=== PATIENT | male | born 1955 | race African-American/Black ===

== ENCOUNTER 2017-02-05 11:05 | Emergency (ER) | payer OTHER ==
[~2017-02-05 11:05] MED LIST: AMANTADINE100 MG PO; ASPIRIN81 M1 PO; ATORVASTATIN CA40 MG PO; BACLOFEN10 MG PO; BACTRIM DS1 TAB PO; BENAZEPRIL HCL10 MG PO; CEFUROXIME AXE250 MG PO; COLACE100 MG PO; ESCITALOPRAM OX10 MG PO; NORVASC5 MG PO; PLAVIX75 MG PO; TAMSULOSIN HCL0.4 MG PO; TOPROL XL25 MG PO; VITAMIN D-31000 UNIT PO
--- NOTE | 2017-02-05 12:06 | DIAGNOSTIC IMAGING REPORT ---
PROCEDURE: XR CHEST 1 VIEW INDICATION: CHEST PAIN TECHNIQUE: Portable AP view 11:29 a.m. COMPARISON: 01/20/2016 and 09/09/2015 FINDINGS: Mild cardiomegaly with multi lead left-sided intact pacemaker. Post median sternotomy and CABG changes. No central vascular congestion. Stable, ectatic thoracic aorta. Mildly low lung volumes. Clear lungs. No obvious pleural effusion or pneumothorax. Intact osseous structures. IMPRESSION: 1. Stable chest. No acute process. 2. Mild cardiomegaly with pacemaker.
--- NOTE | 2017-02-05 16:24 | ED ORDER SUMMARY ---
..... Patient: CONCEPCION COYNE OrderSheet [facility] VisitID: [id number] [place] [address] 61y, M Registration Date/Time: 02/05/2017 ORDER SHEET Weight: 98.4 kg (stated) Allergies: No Known Drug Allergy GENERAL ORDERS: Chest 1V Urgent (11:02/05/2017 Rosey Mckinney) (Ack 11:14 YONATANoerner) (11:32 KHoerner) Cardiac Panel Stat (11:02/05/2017 Rosey Mckinney) (Ack 11:14 Susannaner) (11:27 Nisreen Bennett.N.) BNP Urgent (11:02/05/2017 Rosey Mckinney) (Ack 11:14 YONATANoerner) (11:33 KHoerner) D-Dimer Urgent (11:02/05/2017 Rosey Mckinney) (Ack 11:14 YONATANoerner) (11:33 KHoerner) UA-Culture if indicated Urgent (11:02/05/2017 Rosey Mckinney) (Ack 11:14 Sorayarner) (15:29 KHoerner) EKG - ER Stat (11:02/05/2017 Rosey Mckinney) (11:15 LNations ER Tech1) CPK (Draw at 1510 please) Urgent (14:14 02/05/2017 Rosey Mckinney) (Ack 14:17 YONATANoerner) (15:17 KHoerner) Troponin-I (Draw at 1510 please) Urgent (14:15 02/05/2017 Rosey Mckinney) (Ack 14:17 YONATANoerner) (15:17 KHoerner) MEDICATION ORDERS: IV FLUIDS: IV Saline Lock (11:02/05/2017 Rosey Mckinney) (11:34 Mayela R.NLizzy) IV NS : initial bolus none -, then 1000 mL/hr for X1 (NOW) (11:47 02/05/2017 Rosey Mckinney) (13:18 Nisreen Bennett.NLizzy) ORDER SHEET NOTES: [Electronically signed by Tenzin Gibbs R.N. (21:20 02/05/2017)] [Electronically signed by Kerwin Upton Dr. (20:37 02/06/2017)] [Electronically locked/signed by Tenzin Gibbs R.N. (:20 02/05/2017)]
--- NOTE | 2017-02-05 16:24 | ED CLINICAL REPORT ---
Clinical Report - Physicians/Mid Levels [facility] [address] [place] [address] 02/05/2017 11:08 Patient: CONCEPCION COYNE Time Seen: 11:12. Arrived- By ambulance. Historian- patient, EMS personnel and patient's physician. History limited by vague historian. HISTORY OF PRESENT ILLNESS Chief Complaint: CHEST PAIN. At its maximum, severity described as moderate. When seen in the E.D., severity described as moderate. Modifying factors. Not worsened by anything. Not relieved by anything. Not relieved by nitroglycerin. This started today and is still present. It is described as "pain" and it is described as located in the central chest area and radiating to the upper back. No nausea, vomiting or difficulty breathing. He has experienced diaphoresis. Similar symptoms previously: None. Recent medical care: Not recently seen/assessed. REVIEW OF SYSTEMS No fever, chills, cough, pedal edema or calf pain. No fainting episodes, abdominal pain or difficulty with urination. All systems otherwise negative, except as recorded above. PAST HISTORY Dehydration. Coronary Artery Disease. Fall. Heart Disease. Syncope. Near Syncope. Changed Mental Status. Head Injury. Laceration. Tetanus Status. Immunizations. Hypercholesterolemia. Hypertension. Urinary Incontinence. Benign Brain tumor. Seizure. Implanted Defibrillator. Cardiac Bypass. Dementia. CVA - Cerebrovascular Accident. --11:24 Tenzin Gibbs RLizzyN. Constipation [RuleOut]. Swallowed Foreign Body [RuleOut]. --11:24 Tenzin Gibbs R.N. ADDITIONAL SURGERIES: Cardiac Surgery. Coronary Artery Bypass Graft. Implantation of automatic cardioverter/defibrillator, total system (AICD). Pacemaker. SOCIAL HISTORY Never smoker. ADDITIONAL NOTES The nursing notes have been reviewed. PHYSICAL EXAM Vital Signs: 02/05/2017 11:09 BP: 113/76. HR: 83. RR: 16. O2 saturation: 95%. Temp: 97.7 F. Pain level now: 8/10. Have been reviewed as normal. Appearance: Alert. Patient in mild distress. Eyes: Eyes normal inspection. ENT: Dry mucous membranes present. Neck: Normal inspection. Neck supple. CVS: Normal heart rate and rhythm. Heart sounds normal. Respiratory: No respiratory distress. Breath sounds normal. Chest nontender. Abdomen: Soft and nontender. Bowel sounds normal. Back: Normal external inspection. Skin: Moderate diaphoresis. Extremities: No calf tenderness. No lower extremity edema. LABS, X-RAYS, AND EKG Chest X-ray: (1. Stable chest. No acute process. 2. Mild cardiomegaly with pacemaker.). Views: AP. Technique: good. The X-rays were independently viewed by me, interpreted by the radiologist and discussed with the radiologist. Laboratory Tests: CBC w Diff: (ERIC: 02/05/2017 11:20) ( MsgRcvd 02/05/2017 11:53) Final results Test Result Flag Units (Reference) WHITE BLOOD COUNT 7.2 K/uL (4.5-11.5) RED BLOOD COUNT 4.68 M/uL (4.50-5.90) HEMOGLOBIN 14.4 gm/dL (13.5-17.5) HEMATOCRIT 42.8 % (41.0-53.0) MEAN CELL VOLUME 92 fL (80-100) MEAN CORPUSCULAR HGB 31 pg (26-34) MEAN CORPUSCULAR HGB CONC 34 g/dL (31-37) RED CELL DISTRIBUTION WIDTH 14.2 % (11.6-14.8) PLATELET COUNT 217 K/uL (150-400) NEUTROPHIL % 47.9 L % (50-75) LYMPH % 39.2 % (25-40) MONO % 9.3 % (3-14) EOSINOPHIL % 3.1 % (0-4) BASOPHIL % 0.5 % (0-2) [id number]: (ERIC: 02/05/2017 11:20) ( MsgRcvd 02/05/2017 12:00) Final results Test Result Flag Units (Reference) D-DIMER QUANTITATIVE 0.40 ug/mLFEU (0.27-0.52) The primary value of this quantitative assay relates toits negative predictive value (i.e. exclusion) of pulmonaryembolism/deep vein thrombosis/DIC.Elevated levels of d-dimer may also occur with:, age, cancer, inflammation, liver disease,post-op, infection, hematoma, coronary disease, peripheralarteriopathy, bleeding disorders and thrombolytic treatment.Results should be correlated with other clinical andradiological data.Testing Methodology: Latex Immunoassay CPK: (ERIC: 02/05/2017 15:16) ( [facility] 02/05/2017 15:59) Final results Test Result Flag Units (Reference) CPK 79 U/L (24-260) TROPONIN I <0.05 L ng/mL (0.00-1.5) TROPONIN REFERENCE RANGE:<0.1 NEGATIVE0.1-1.5 INDETERMINANT>1.5 POSITIVE BNP: (ERIC: 02/05/2017 11:20) ( [facility] 02/05/2017 12:19) Final results Test Result Flag Units (Reference) B-TYPE NATRIURETIC PEPTIDE 21.4 pg/ml (5-100) CHEM 13 PANEL: (ERIC: 02/05/2017 11:20) ( [facility] 02/05/2017 12:17) Final results Test Result Flag Units (Reference) GLUCOSE 121 H mg/dL (70-110) BUN 22 H mg/dL (7-18) CREATININE 1.3 mg/dL (0.6-1.3) Estimated GFR 59.85 mL/min Estimated GFR- >60 mL/min Note: Persistent reduction over 3 months in eGFR<60 mL/min/1.73 m2 defines CKD. Patients with eGFR values>=60 mL/min/1.73 m2 may also have CKD if evidence ofpersistent proteinuria. Additional information may be foundat www.[email or web address].org. SODIUM 141 mmol/L (136-145) POTASSIUM 3.0 L mmol/L (3.5-5.1) CHLORIDE 104 mmol/L (98-107) CARBON DIOXIDE 25 mmol/L (21-32) CALCIUM 8.9 mg/dL (8.5-10.1) TOTAL PROTEIN 8.5 H g/dL (6.4-8.2) ALBUMIN 3.6 g/dL (3.3-5.0) BILIRUBIN, TOTAL 0.7 mg/dL (0.0-1.0) ALKALINE PHOSPHATASE 128 H U/L (46-116) AST (SGOT) 19 U/L (15-37) ALT (SGPT) 43 U/L (12-78) MAGNESIUM 2.1 mg/dL (1.8-2.4) CPK 83 U/L (24-260) TROPONIN I <0.05 ng/mL (0.00-1.5) TROPONIN REFERENCE RANGE:<0.1 NEGATIVE0.1-1.5 INDETERMINANT>1.5 POSITIVE . PROGRESS AND PROCEDURES Course of Care: 16:21 02/05/17. 2nd set of enzymes normal, will D/C back to rehab. Discussed case with patient's primary care provider, (call returned 14:08 Dr Penny. Will repeat cardiac enzymes at the 4 hour edmund, if normal, will send back to rehab.). Reviewed test results. Disposition: [facility]charged to jail in good and improved condition. Condition: good. CLINICAL IMPRESSION Atypical chest pain .12 lead EKG performed. INSTRUCTIONS Your Current Medications: CONTINUE TAKING THE FOLLOWING MEDICATIONS: Amantadine HCl Oral : Capsule 100 mg, 1 capsule daily. ASA Oral : 81 mg daily. Atorvastatin Calcium Oral : Tablet 40 mg, 1 tablet at bedtime. Baclofen Oral : Tablet 10 mg, 1/2 tablet 3x a day. Benazepril HCl Oral : Tablet 10 mg, 1 tablet BID. Escitalopram Oxalate Oral : Tablet 10 mg, 1 tablet daily. Plavix Oral : Tablet 75 mg, 1 tablet daily. Tamsulosin HCl Oral : Capsule 0.4 mg, 1 capsule daily. Toprol XL Oral : Tablet Extended Release 24 Hour 25 mg, 1 tablet daily. Vit D 3 2000 unit * : daily. Follow-up: Follow up with your doctor tomorrow. Blood pressure screening was not performed during this visit because the patient has an active diagnosis of hypertension. (Electronically signed by Kerwin Upton Dr. 02/06/2017 20:37)
--- NOTE | 2017-02-05 16:24 | ED NURSING NOTES ---
Clinical Report - Nurses [facility] [address] [place] [address] 02/05/2017 11:08 Patient: CONCEPCION COYNE TRIAGE Triage time 11:Feb 05 2017. Acuity: LEVEL 3. Chief Complaint: CHEST PAIN. Alert. MAREK COMA SCORE: Marek Coma Scale: 15- eyes open spontaneously (4); best verbal response- oriented x 4 (5); best motor response- obeys commands (6). --11:25 Tenzin Gibbs R.N. 11:09 02/05/17. BP: 113/76. HR: 83 (regular). RR: 16. O2 saturation: 95% on room air. Temp: 97.7 F (oral). Pain level now: 8/10. Additional comments: Back. --11:25 Tenzin Gibbs R.N. Weight: 98.4 kg stated. Height/Length: 71 inches Per Patient. BMI: 30.3. --11:15 Tenzin Gibbs R.N. Medications Amantadine HCl Oral (Capsule 100 mg) 1 capsule, daily. ASA Oral 81 mg, daily. Atorvastatin Calcium Oral (Tablet 40 mg) 1 tablet, at bedtime. Baclofen Oral (Tablet 10 mg) 1/2 tablet, 3x a day. Benazepril HCl Oral (Tablet 10 mg) 1 tablet, BID. Escitalopram Oxalate Oral (Tablet 10 mg) 1 tablet, daily. Plavix Oral (Tablet 75 mg) 1 tablet, daily. Tamsulosin HCl Oral (Capsule 0.4 mg) 1 capsule, daily. Toprol XL Oral (Tablet Extended Release 24 Hour 25 mg) 1 tablet, daily. Vit D 3 2000 unit , daily. --11:19 Tenzin Gibbs R.N. Allergies No Known Drug Allergy. --11:19 Tenzin Gibbs R.N. (Old med list, new facility med list). --11:25 Tenzin Gibbs R.N. History Arrived by private vehicle. Historian: patient. Unaccompanied. Primary physician (Zohaib). ( Back Pain (chronic), but recent Chest Pain.). This started today. 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 PAST MEDICAL HX: Immunizations: status is unknown. SOCIAL HX: Never smoker. No infectious disease exposure. ABUSE ASSESSMENT: No report of abuse. FALL RISK ASSESSMENT: Fall risk assessment completed. No fall risk identified. NUTRITIONAL RISK ASSESSMENT: The nutritional risk assessment revealed no deficiencies. FUNCTIONAL ASSESSMENT: Functional assessment: no impairments noted. LEARNING NEEDS ASSESSMENT: The learning needs assessment revealed no barriers. SKIN INTEGRITY ASSESSMENT: Skin integrity risk assessment completed. No skin integrity risk identified. --11:25 Tenzin Gibbs R.N. PROBLEMS: Dehydration. Coronary Artery Disease. Fall. Heart Disease. Syncope. Near Syncope. Changed Mental Status. Head Injury. Laceration. Tetanus Status. Immunizations. Hypercholesterolemia. Hypertension. Urinary Incontinence. Benign Brain tumor. Seizure. Implanted Defibrillator. Cardiac Bypass. Dementia. CVA - Cerebrovascular Accident. --11:24 Tenzin Gibbs R.N. Constipation [RuleOut]. Swallowed Foreign Body [RuleOut]. --11:24 Tenzin Gibbs R.N. ADDITIONAL SURGERIES: Cardiac Surgery. Coronary Artery Bypass Graft. Implantation of automatic cardioverter/defibrillator, total system (AICD). Pacemaker. --11:24 Tenzin Gibbs R.N. Interventions ID band on patient. To treatment room. --11:25 Tenzin Gibbs R.N. PHYSICAL ASSESSMENT To room via stretcher. GENERAL / NEURO / PSYCH: Alert. Oriented X 4. HEENT: Mucous membranes are pink. RESPIRATORY: Respirations not labored. CVS: Normal sinus rhythm noted. GI / : Abdomen soft. EXTREMITIES: No lower extremity edema. SKIN: Skin is warm and dry. Normal skin turgor. --11:26 Tenzin Gibbs R.N. NURSING PROGRESS NOTES 11:23 02/05/17. Finger stick glucose: 115 mg/dL; performed by nurse; result shown to the ED physician. --11:23 Tenzin Gibbs R.N. case monitor, pulse oximeter and NIBP monitor placed on patient; property assessment monitor- Lead II and V1; monitor alarms on. Patient gowned. Patient identifiers checked. Call light placed in reach. Side rails up x 2. Bed placed in lowest position. Brakes of bed on. Patient ready for evaluation- chart flagged and ED physician notified. --11:26 Tenzin Gibbs R.N. 11:29 02/05/2017 Site #1 started via IV in the right antecubital space with an 20g angiocath; two attempts. Blood drawn: rainbow set. Labeled in the presence of the patient and sent to the lab. Saline lock flushed with 10 mL saline. --11:34 Romario Gandhi R.N. EKG time: (1117). EKG was ordered, performed by a tech and shown to the ED physician. --11:35 Melanie Desir, ANAMARIA Tech1 12:15 02/05/17. BP: 90/52. HR: 67. RR: 16. O2 saturation: 99% on room air. --13:13 Tenzin Gibbs R.N. 13:00 02/05/17. BP: 114/72. HR: 74 (regular and normal rate). RR: 16. O2 saturation: 98% on room air. Pain level now: 03/02. Additional comments: BACK PAIN. --13:16 Tenzin Gibbs R.N. 11:30 02/05/2017 Started bag #1 1000 mL IV Fluids IV NS (Saline); at 1000 mL/hr over 60 minute(s) via site #1 via IV pump. Allergies verified. IV patency established. IV site checked: no pain, redness, or swelling. IV flushed thoroughly pre- and post-medication administration. --13:18 Tenzin Gibbs R.N. 12:30 02/05/2017 IV Fluids IV NS Bag Change: bag #1 infused. Total amount infused: 1000. STARTED bag #2 at 125 mL/hr via IV pump. Confirmed 5 rights. IV patency established. IV site checked: no pain, redness, or swelling. IV flushed thoroughly. --13:19 Tenzin Gibbs R.N. 13:36 02/05/17. Warming measures: blanket applied. He was turned and repositioned. ( patient rounding). --13:36 Kandy Zheng R.N. 13:36 02/05/17. BP: 105/65 (regular adult cuff) taken on the left arm, via an automated monitor, while lying. HR: 74 (regular). RR: 14. O2 saturation: 100% on nasal cannula at 2 liters/minute. --13:38 Kandy Zheng R.N. 13:41 02/05/17. BP: 122/82 (regular adult cuff) taken on the right arm, manually, while lying. HR: 71. RR: 14. O2 saturation: 98%. --13:42 Kandy Zheng R.N. 14:30 02/05/17. BP: 106/71. HR: 72. RR: 16. O2 saturation: 97% on nasal cannula at 2 liters/minute. --14:46 Tenzin Gibbs R.N. 16:07 02/05/17. BP: 127/76. HR: 78. RR: 16. O2 saturation: 98% on room air. --16:08 Tenzin Gibbs R.N. 18:10 02/05/2017 Site #1 removed upon discharge. Catheter intact. Manual pressure, pressure dressing and bandaid applied. --21:20 Tenzin Gibbs R.N. 18:10 02/05/2017 IV Fluids IV NS Discontinued: bag #2 discontinued upon discharge. Total amount infused: 600 mL. IV patency established. IV site checked: no pain, redness, or swelling. IV flushed thoroughly. --21:19 Tenzin Gibbs R.N. DISPOSITION / DISCHARGE Departure time: 1814. --21:07 Tenzin Gibbs R.N. <<STRICKEN ENTRY-- 21:08 02/05/17. BP: 128/77. HR: 78. RR: 16. O2 saturation: 97% on room air. Temp: 98.6 F. Pain level now: 11/02. Additional comments: Chronic Back Pain. --21:13 Tenzin Gibbs R.N. --END STRIKE>> Correction. --21:13 Tenzin Gibbs R.N. 18:02/05/17. BP: 128/77. HR: 78. RR: 16. O2 saturation: 97% on room air. Temp: 98.6 F (oral). Pain level now: 2/10. Additional comments: Chronic Back Pain. --21:15 Sai, Tenzin, R.N. 18:15. Condition at departure: improved. No learning barriers present. Discharge instructions provided and reviewed with the patient. Reviewed medication(s) (continue your usual prescribed medications). Reviewed referral to family practice for followup. Family verbalized understanding. Written instructions provided in Vietnamese. The patient was discharged by the physician. He was discharged home and accompanied by ambulance. He left the Emergency Department via ambulance and on a stretcher. Driving (Transport crew). --21:18 Tenzin Gibbs R.N. Locked/Released at 02/05/2017 21:20 by Tenzin Gibbs R.N.
--- NOTE | 2017-02-05 16:24 | ED ORDER SUMMARY ---
..... Patient: CONCEPCION COYNE OrderSheet [facility] VisitID: [id number] [place] [address] 61y, M Registration Date/Time: 02/05/2017 ORDER SHEET Weight: 98.4 kg (stated) Allergies: No Known Drug Allergy GENERAL ORDERS: Chest 1V Urgent (11:02/05/2017 Rosey Mckinney) (Ack 11:14 YONATANoerner) (11:32 KHoerner) Cardiac Panel Stat (11:02/05/2017 Rosey Mckinney) (Ack 11:14 Susannaner) (11:27 Nisreen Bennett.N.) BNP Urgent (11:02/05/2017 Rosey Mckinney) (Ack 11:14 YONATANoerner) (11:33 KHoerner) D-Dimer Urgent (11:02/05/2017 Rosey Mckinney) (Ack 11:14 YONATANoerner) (11:33 KHoerner) UA-Culture if indicated Urgent (11:02/05/2017 Rosey Mckinney) (Ack 11:14 Sorayarner) (15:29 KHoerner) EKG - ER Stat (11:02/05/2017 Rosey Mckinney) (11:15 LNations ER Tech1) CPK (Draw at 1510 please) Urgent (14:14 02/05/2017 Rosey Mckinney) (Ack 14:17 YONATANoerner) (15:17 KHoerner) Troponin-I (Draw at 1510 please) Urgent (14:15 02/05/2017 Rosey Mckinney) (Ack 14:17 YONATANoerner) (15:17 KHoerner) MEDICATION ORDERS: IV FLUIDS: IV Saline Lock (11:02/05/2017 Rosey Mckinney) (11:34 Mayela R.NLizzy) IV NS : initial bolus none -, then 1000 mL/hr for X1 (NOW) (11:47 02/05/2017 Rosey Mckinney) (13:18 Nisreen Bennett.NLizzy) ORDER SHEET NOTES: [Electronically signed by Tenzin Gibbs R.N. (21:20 02/05/2017)] [Electronically signed by Kerwin Upton Dr. (20:37 02/06/2017)] [Electronically locked/signed by Tenzin Gibbs R.N. (:20 02/05/2017)]
--- NOTE | 2017-02-05 16:24 | ED CLINICAL REPORT ---
Clinical Report - Physicians/Mid Levels [facility] [address] [place] [address] 02/05/2017 11:08 Patient: CONCEPCION COYNE Time Seen: 11:12. Arrived- By ambulance. Historian- patient, EMS personnel and patient's physician. History limited by vague historian. HISTORY OF PRESENT ILLNESS Chief Complaint: CHEST PAIN. At its maximum, severity described as moderate. When seen in the E.D., severity described as moderate. Modifying factors. Not worsened by anything. Not relieved by anything. Not relieved by nitroglycerin. This started today and is still present. It is described as "pain" and it is described as located in the central chest area and radiating to the upper back. No nausea, vomiting or difficulty breathing. He has experienced diaphoresis. Similar symptoms previously: None. Recent medical care: Not recently seen/assessed. REVIEW OF SYSTEMS No fever, chills, cough, pedal edema or calf pain. No fainting episodes, abdominal pain or difficulty with urination. All systems otherwise negative, except as recorded above. PAST HISTORY Dehydration. Coronary Artery Disease. Fall. Heart Disease. Syncope. Near Syncope. Changed Mental Status. Head Injury. Laceration. Tetanus Status. Immunizations. Hypercholesterolemia. Hypertension. Urinary Incontinence. Benign Brain tumor. Seizure. Implanted Defibrillator. Cardiac Bypass. Dementia. CVA - Cerebrovascular Accident. --11:24 Tenzin Gibbs RLizzyN. Constipation [RuleOut]. Swallowed Foreign Body [RuleOut]. --11:24 Tenzin Gibbs R.N. ADDITIONAL SURGERIES: Cardiac Surgery. Coronary Artery Bypass Graft. Implantation of automatic cardioverter/defibrillator, total system (AICD). Pacemaker. SOCIAL HISTORY Never smoker. ADDITIONAL NOTES The nursing notes have been reviewed. PHYSICAL EXAM Vital Signs: 02/05/2017 11:09 BP: 113/76. HR: 83. RR: 16. O2 saturation: 95%. Temp: 97.7 F. Pain level now: 8/10. Have been reviewed as normal. Appearance: Alert. Patient in mild distress. Eyes: Eyes normal inspection. ENT: Dry mucous membranes present. Neck: Normal inspection. Neck supple. CVS: Normal heart rate and rhythm. Heart sounds normal. Respiratory: No respiratory distress. Breath sounds normal. Chest nontender. Abdomen: Soft and nontender. Bowel sounds normal. Back: Normal external inspection. Skin: Moderate diaphoresis. Extremities: No calf tenderness. No lower extremity edema. LABS, X-RAYS, AND EKG Chest X-ray: (1. Stable chest. No acute process. 2. Mild cardiomegaly with pacemaker.). Views: AP. Technique: good. The X-rays were independently viewed by me, interpreted by the radiologist and discussed with the radiologist. Laboratory Tests: CBC w Diff: (ERIC: 02/05/2017 11:20) ( MsgRcvd 02/05/2017 11:53) Final results Test Result Flag Units (Reference) WHITE BLOOD COUNT 7.2 K/uL (4.5-11.5) RED BLOOD COUNT 4.68 M/uL (4.50-5.90) HEMOGLOBIN 14.4 gm/dL (13.5-17.5) HEMATOCRIT 42.8 % (41.0-53.0) MEAN CELL VOLUME 92 fL (80-100) MEAN CORPUSCULAR HGB 31 pg (26-34) MEAN CORPUSCULAR HGB CONC 34 g/dL (31-37) RED CELL DISTRIBUTION WIDTH 14.2 % (11.6-14.8) PLATELET COUNT 217 K/uL (150-400) NEUTROPHIL % 47.9 L % (50-75) LYMPH % 39.2 % (25-40) MONO % 9.3 % (3-14) EOSINOPHIL % 3.1 % (0-4) BASOPHIL % 0.5 % (0-2) [id number]: (ERIC: 02/05/2017 11:20) ( MsgRcvd 02/05/2017 12:00) Final results Test Result Flag Units (Reference) D-DIMER QUANTITATIVE 0.40 ug/mLFEU (0.27-0.52) The primary value of this quantitative assay relates toits negative predictive value (i.e. exclusion) of pulmonaryembolism/deep vein thrombosis/DIC.Elevated levels of d-dimer may also occur with:, age, cancer, inflammation, liver disease,post-op, infection, hematoma, coronary disease, peripheralarteriopathy, bleeding disorders and thrombolytic treatment.Results should be correlated with other clinical andradiological data.Testing Methodology: Latex Immunoassay CPK: (ERIC: 02/05/2017 15:16) ( [facility] 02/05/2017 15:59) Final results Test Result Flag Units (Reference) CPK 79 U/L (24-260) TROPONIN I <0.05 L ng/mL (0.00-1.5) TROPONIN REFERENCE RANGE:<0.1 NEGATIVE0.1-1.5 INDETERMINANT>1.5 POSITIVE BNP: (ERIC: 02/05/2017 11:20) ( [facility] 02/05/2017 12:19) Final results Test Result Flag Units (Reference) B-TYPE NATRIURETIC PEPTIDE 21.4 pg/ml (5-100) CHEM 13 PANEL: (ERIC: 02/05/2017 11:20) ( [facility] 02/05/2017 12:17) Final results Test Result Flag Units (Reference) GLUCOSE 121 H mg/dL (70-110) BUN 22 H mg/dL (7-18) CREATININE 1.3 mg/dL (0.6-1.3) Estimated GFR 59.85 mL/min Estimated GFR- >60 mL/min Note: Persistent reduction over 3 months in eGFR<60 mL/min/1.73 m2 defines CKD. Patients with eGFR values>=60 mL/min/1.73 m2 may also have CKD if evidence ofpersistent proteinuria. Additional information may be foundat www.[email or web address].org. SODIUM 141 mmol/L (136-145) POTASSIUM 3.0 L mmol/L (3.5-5.1) CHLORIDE 104 mmol/L (98-107) CARBON DIOXIDE 25 mmol/L (21-32) CALCIUM 8.9 mg/dL (8.5-10.1) TOTAL PROTEIN 8.5 H g/dL (6.4-8.2) ALBUMIN 3.6 g/dL (3.3-5.0) BILIRUBIN, TOTAL 0.7 mg/dL (0.0-1.0) ALKALINE PHOSPHATASE 128 H U/L (46-116) AST (SGOT) 19 U/L (15-37) ALT (SGPT) 43 U/L (12-78) MAGNESIUM 2.1 mg/dL (1.8-2.4) CPK 83 U/L (24-260) TROPONIN I <0.05 ng/mL (0.00-1.5) TROPONIN REFERENCE RANGE:<0.1 NEGATIVE0.1-1.5 INDETERMINANT>1.5 POSITIVE . PROGRESS AND PROCEDURES Course of Care: 16:21 02/05/17. 2nd set of enzymes normal, will D/C back to rehab. Discussed case with patient's primary care provider, (call returned 14:08 Dr Penny. Will repeat cardiac enzymes at the 4 hour edmund, if normal, will send back to rehab.). Reviewed test results. Disposition: Discharged to [facility] in good and improved condition. Condition: good. CLINICAL IMPRESSION Atypical chest pain .12 lead EKG performed. INSTRUCTIONS Your Current Medications: CONTINUE TAKING THE FOLLOWING MEDICATIONS: Amantadine HCl Oral : Capsule 100 mg, 1 capsule daily. ASA Oral : 81 mg daily. Atorvastatin Calcium Oral : Tablet 40 mg, 1 tablet at bedtime. Baclofen Oral : Tablet 10 mg, 1/2 tablet 3x a day. Benazepril HCl Oral : Tablet 10 mg, 1 tablet BID. Escitalopram Oxalate Oral : Tablet 10 mg, 1 tablet daily. Plavix Oral : Tablet 75 mg, 1 tablet daily. Tamsulosin HCl Oral : Capsule 0.4 mg, 1 capsule daily. Toprol XL Oral : Tablet Extended Release 24 Hour 25 mg, 1 tablet daily. Vit D 3 2000 unit * : daily. Follow-up: Follow up with your doctor tomorrow. Blood pressure screening was not performed during this visit because the patient has an active diagnosis of hypertension. (Electronically signed by Kerwin Upton Dr. 02/06/2017 20:37)
--- NOTE | 2017-02-06 20:37 | ED DISCHARGE INSTRUCTIONS ---
Patient: CONCEPCION COYNE General Instructions [facility] VisitID: [id number] [place] [address] 61y, M Registration Date/Time: 02/05/2017 Atypical chest pain .12 lead EKG performed. INSTRUCTIONS Your Current Medications: CONTINUE TAKING THE FOLLOWING MEDICATIONS: Amantadine HCl Oral : Capsule 100 mg, 1 capsule daily. ASA Oral : 81 mg daily. Atorvastatin Calcium Oral : Tablet 40 mg, 1 tablet at bedtime. Baclofen Oral : Tablet 10 mg, 1/2 tablet 3x a day. Benazepril HCl Oral : Tablet 10 mg, 1 tablet BID. Escitalopram Oxalate Oral : Tablet 10 mg, 1 tablet daily. Plavix Oral : Tablet 75 mg, 1 tablet daily. Tamsulosin HCl Oral : Capsule 0.4 mg, 1 capsule daily. Toprol XL Oral : Tablet Extended Release 24 Hour 25 mg, 1 tablet daily. Vit D 3 2000 unit * : daily. Follow-up: Follow up with your doctor tomorrow. Blood pressure screening was not performed during this visit because the patient has an active diagnosis of hypertension. ADDITIONAL INFORMATION Chest Pain, Noncardiac Based on your visit today, the exact cause of your chest pain is not certain. Your condition does not seem serious and your pain does not appear to be coming from your heart. However, sometimes the signs of a serious problem take more time to appear. Therefore, please watch for the warning signs listed below. Home Care: Rest today and avoid strenuous activity. Take any prescribed medicine as directed. Follow Up with your doctor or this facility as instructed or if you do not start to feel better within 24 hours. Get Prompt Medical Attention if any of the following occur: A change in the type of pain: if it feels different, becomes more severe, lasts longer, or begins to spread into your shoulder, arm, neck, jaw or back Shortness of breath or increased pain with breathing Cough with dark colored sputum (phlegm) or blood Weakness, dizziness, or fainting Fever of 100.4F (38C) or higher, or as directed by your healthcare provider Swelling, pain or redness in one leg You have been given the following additional information: Chest Pain, Noncardiac (Electronically signed by Kerwin Upton Dr. 02/06/2017 20:37)
--- NOTE | 2017-02-06 20:37 | ED MED RECONCILIATION SUMMARY ---
Patient: CONCEPCION COYNE Medication Reconciliation Report [facility] VisitID: [id number] [address] [place] [address] 61y, M Registration Date/Time: 02/05/2017 Weight: 98.4 kg Height/Length: 71 in. BMI: 30.3 ALLERGIES: No Known Drug Allergy The patient's Home Medications are listed below: CONTINUE TAKING THE FOLLOWING MEDICATIONS: Amantadine HCl Oral (100 mg) 1 capsule, daily ASA Oral 81 mg, daily Atorvastatin Calcium Oral (40 mg) 1 tablet, at bedtime Baclofen Oral (10 mg) 1/2 tablet, 3x a day Benazepril HCl Oral (10 mg) 1 tablet, BID Escitalopram Oxalate Oral (10 mg) 1 tablet, daily Plavix Oral (75 mg) 1 tablet, daily Tamsulosin HCl Oral (0.4 mg) 1 capsule, daily Toprol XL Oral (25 mg) 1 tablet, daily Vit D 3 2000 unit , daily The source(s) of the original Home Medication information: Old med list, new facility med list The following Medications were given to the patient in the Emergency Department: IV NS IV Fluids bolus 0, then 1000 mL/hr, administered: 02/05/2017 11:30:00 AM The following Medications were prescribed to the patient: None.
--- NOTE | 2017-02-06 20:37 | ED MAR SUMMARY ---
..... Medication Administration Record [facility] [address] [place] [address] Patient: CONCEPCION COYNE Visit ID: [id number] 61y, M Weight: 98.4 kg Height/Length: 71 in BMI: 30.3 ALLERGIES: No Known Drug Allergy Start 11:30 02/05/2017 Tenzin iGbbs RElian., Stop 18:10 02/05/2017 Tenzin Gibbs RElian. Medication Administered: IV NS (SALINE), Dose: IV Fluids over 60 minute(s), Rate: 1000 mL/hr, Dispensed: 1000 mL bag, Site: #1 right AC. Medication Ordered: IV NS : initial bolus none -, then 1000 mL/hr for X1 (NOW).
--- NOTE | 2017-02-06 20:37 | ED MED RECONCILIATION SUMMARY ---
Patient: CONCEPCION COYNE Medication Reconciliation Report [facility] VisitID: [id number] [address] [place] [address] 61y, M Registration Date/Time: 02/05/2017 Weight: 98.4 kg Height/Length: 71 in. BMI: 30.3 ALLERGIES: No Known Drug Allergy The patient's Home Medications are listed below: CONTINUE TAKING THE FOLLOWING MEDICATIONS: Amantadine HCl Oral (100 mg) 1 capsule, daily ASA Oral 81 mg, daily Atorvastatin Calcium Oral (40 mg) 1 tablet, at bedtime Baclofen Oral (10 mg) 1/2 tablet, 3x a day Benazepril HCl Oral (10 mg) 1 tablet, BID Escitalopram Oxalate Oral (10 mg) 1 tablet, daily Plavix Oral (75 mg) 1 tablet, daily Tamsulosin HCl Oral (0.4 mg) 1 capsule, daily Toprol XL Oral (25 mg) 1 tablet, daily Vit D 3 2000 unit , daily The source(s) of the original Home Medication information: Old med list, new facility med list The following Medications were given to the patient in the Emergency Department: IV NS IV Fluids bolus 0, then 1000 mL/hr, administered: 02/05/2017 11:30:00 AM The following Medications were prescribed to the patient: None.
--- NOTE | 2017-02-06 20:37 | ED MAR SUMMARY ---
..... Medication Administration Record [facility] [address] [place] [address] Patient: CONCEPCION COYNE Visit ID: [id number] 61y, M Weight: 98.4 kg Height/Length: 71 in BMI: 30.3 ALLERGIES: No Known Drug Allergy Start 11:30 02/05/2017 Tenzin Gibbs RElian., Stop 18:10 02/05/2017 Tenzin Gibbs RElian. Medication Administered: IV NS (SALINE), Dose: IV Fluids over 60 minute(s), Rate: 1000 mL/hr, Dispensed: 1000 mL bag, Site: #1 right AC. Medication Ordered: IV NS : initial bolus none -, then 1000 mL/hr for X1 (NOW).
== END 2017-02-05 18:15 | disposition home or self-care (01) ==
LOC: ED SRH 11:05
DX: R07.89 Other chest pain (principal); I10 Essential (primary) hypertension; Z86.73 Personal history of transient ischemic attack (TIA), and cerebral infarction without residual deficits; Z95.1 Presence of aortocoronary bypass graft; I25.10 Atherosclerotic heart disease of native coronary artery without angina pectoris; Z95.0 Presence of cardiac pacemaker; Z79.82 Long term (current) use of aspirin; Z79.899 Other long term (current) drug therapy
CPT/HCPCS: 90074; 90098; 90100; 90616; 91320; 91556; 92610; 92720; 95059